=== PATIENT | female | born 1935 | race Hispanic/Latino ===

== ENCOUNTER 2022-04-22 10:38 | Emergency (ER) | payer MEDICARE, OTHER ==
[~2022-04-22 10:38] MED LIST: ATORVASTATIN CA40 MG PO; JANUVIA100 MG PO; LUNESTA1 MG PO
== END 2022-04-22 13:45 | disposition home or self-care (01) ==
LOC: ER 10:41
DX: Z51.5 Encounter for palliative care (principal); F03.90 Unspecified dementia, unspecified severity, without behavioral disturbance, psychotic disturbance, mood disturbance, and anxiety; E11.9 Type 2 diabetes mellitus without complications; I10 Essential (primary) hypertension
CPT/HCPCS: 99283